=== PATIENT | female | born 1940 | race Caucasian/White ===

== ENCOUNTER 2025-01-01 01:03 | Emergency (ER) | payer OTHER ==
[~2025-01-01] VITALS: Ht 162.6 cm; Wt 72.6 kg
[2025-01-01] MEDS ORDERED: FAMOTIDINE/PF INJ 20 MG/2 ML VIAL IV ONE (01:47)
[2025-01-01] MEDS ORDERED: FEXOFENADINE HCL (60 MG) 60 MG TABLET PO SCH (02:00)
[2025-01-01] MEDS: FAMOTIDINE/PF INJ 20 MG/2 ML VIAL IV ONE (02:11)
[2025-01-01] MEDS ORDERED: LORATADINE 10 MG TABLET ONE (02:20)
[2025-01-01] MEDS: LORATADINE 10 MG TABLET PO SCH (02:27)
[2025-01-01] MEDS ORDERED: IRBE150T28 PO (02:39)
[2025-01-01] MEDS ORDERED: LEVO75TA56 PO (02:39)
[2025-01-01] MEDS ORDERED: GABA-532 PO ×2 (02:39)
[2025-01-01] MEDS ORDERED: SOTA120T PO (02:39)
[2025-01-01] MEDS ORDERED: ROSU20TA2 PO (02:39)
[2025-01-01] MEDS ORDERED: TRAM50TA2 PO (02:39)
[2025-01-01] MEDS ORDERED: GLIP5TAB13 PO (02:39)
[2025-01-01] MEDS ORDERED: DULO30CA2 PO (02:39)
[2025-01-01] MEDS ORDERED: ALPR0.5T PO (02:39)
[2025-01-01] MEDS ORDERED: PIOG15TA8 PO (02:39)
[2025-01-01 03:06] VITALS: TEMP 98.2
[2025-01-01] MEDS ORDERED: EPIN0.3P3 IM (03:49)
[2025-01-01] MEDS ORDERED: METH4TAB3 PO (03:49)
[2025-01-01] MEDS ORDERED: CETI10CA8 PO (03:49)
[2025-01-01 04:05] VITALS: BP 117/75; O2SAT 98
== END 2025-01-01 04:06 | disposition home or self-care (01) ==
LOC: ER 01:04
DX: L40.9 Psoriasis, unspecified (principal); T78.40XA Allergy, unspecified, initial encounter; E78.5 Hyperlipidemia, unspecified; I10 Essential (primary) hypertension; E11.9 Type 2 diabetes mellitus without complications; Z79.84 Long term (current) use of oral hypoglycemic drugs; Z88.5 Allergy status to narcotic agent; Z90.49 Acquired absence of other specified parts of digestive tract; Z79.899 Other long term (current) drug therapy; X58.XXXA Exposure to other specified factors, initial encounter
CPT/HCPCS: 99283; 96374; 96375; 93005; J1308; J2919; Q0163